=== PATIENT | female | born 1985 | race Caucasian/White ===

== ENCOUNTER 2021-11-15 04:37 | Day surgery (SDC) | payer OTHER ==
[2021-11-13 10:01] VITALS: BMI 20.2
[2021-11-15] MEDS ORDERED: MIDAZOLAM HCL 2 MG/2 ML SINGLE DOSE VIAL ONE (14:11)
[2021-11-15 16:38] VITALS: BP 101/64; PULSE 68; TEMP 68
== END 2021-11-15 04:45 | disposition home or self-care (01) ==
LOC: JASU-SURG 04:37
PROVIDERS: ATTEND Obstetrics & Gynecology
PROC: 0UDB7ZX Extraction of Endometrium, Via Natural or Artificial Opening, Diagnostic (ICD-10-PCS; 2021-11-15)
PROC: 0UJD8ZZ Inspection of Uterus and Cervix, Via Natural or Artificial Opening Endoscopic (ICD-10-PCS; 2021-11-15)
PROC: 0UB97ZX Excision of Uterus, Via Natural or Artificial Opening, Diagnostic (ICD-10-PCS; principal; 2021-11-15 14:00)
DX: N84.0 Polyp of corpus uteri (principal)
CPT/HCPCS: 88305-TC; 94760